=== PATIENT | male | born 1985 | race Caucasian/White ===

== ENCOUNTER 2021-03-21 07:39 | Emergency (ER) | payer MEDICAID, SELFPAY ==
[2021-03-21 07:50] VITALS: BP 157/107; PULSE 74; TEMP 36.9; O2SAT 98
--- NOTE | 2021-03-21 08:03 | ED.GENADUL_ITS ---
Discharge Plan Disposition Patient Disposition: HOME Condition: Stable Discharge Details Clinical Impression: Rash Primary Care Provider: Ish Kim ED Provider: Lesa Wilson Home Meds and New Rx's Prescriptions: No Action Complera 1 EACH tablet 1 ea PO DAILY RF: 0 epinephrine [EpiPen 2-Shin] 0.3 MG/0.3 ML auto-injector 0.3 mg IJ PRN PRNQty: 1 RF: 0 sumatriptan succinate 100 mg tablet 100 mg PO BID PRNRF: 0 amlodipine 10 mg tablet 10 mg PO DAILY RF: 0 Discharge Instructions Instructions: Tick Bite (ED) Additional Instructions: Today you were given Doxycycline 200mg which is the treatment for possible tick bite. Please follow-up with your primary care provider in 3 to 5 days. Please take Tylenol or Ibuprofen with food every 4-6 hours as needed for pain and swelling. Referrals: Ish Kim [Primary Care Provider] - Discharge Data Discharge Date/Time-TO BE ENTERED AT DEPARTURE: 03/21/21 08:24 Medical Decision Making 35-year-old male presents to the ER with chief complaint of circular lesion to his left inner forearm. Patient is concerned that he may have been bitten by a tick but is unsure. He denies any other rash or lesions denies pruritus no fever no other associated symptoms. On initial exam he has a small circular lesion with surrounding ecchymosis with a central raised area. Patient prescribed doxycycline 200 mg p.o. x1 for possible tick bite exposure. Will instruct to follow-up with PCP. This text was generated using [employer] dictation system, please disregard any oddities of phrase or misspellings. HPI General Mode of arrival: ambulatory . Date/Time Provider Initiated Documentation: 03/21/21 08:02 . Limitations to Documentation: no limitations . Information obtained by: patient . HPI Narrative: 35-year-old male presents to the ER with chief complaint of circular lesion to his left inner forearm. Patient is concerned that he may have been bitten by a tick but is unsure. He denies any other rash or lesions denies pruritus no fever no other associated symptoms. On initial exam he has a small circular lesion with surrounding ecchymosis with a central raised area. Related Data Home Medications Medication Instructions Recorded Confirmed iodeabpza-[id number] DF 1 ea PO DAILY 03/22/15 03/21/21 [Complera Tablet] epinephrine [Epipen 2-Shin] 0.3 mg IJ PRN PRN #1 ml 03/22/15 03/21/21 amlodipine 10 mg PO DAILY 03/21/21 03/21/21 sumatriptan succinate 100 mg PO BID PRN 03/21/21 03/21/21 Previous Rx's Medication Instructions Recorded epinephrine [Epipen 2-Shin] 0.3 mg IJ PRN PRN #1 ml 03/22/15 Allergies Allergy/AdvReac Type Severity Reaction Status Date / Time apple Allergy Severe Anaphylaxsi Unverified 03/21/21 07:58 s sertraline HCl [From Zoloft] Allergy Severe Anaphylaxsi Unverified 03/21/21 07:58 s venom-honey bee Allergy Severe Anaphylaxsi Unverified 03/21/21 07:58 [bee venom (honey bee)] s General Stated Complaint: RashLesion NATALIE: 5 Review of Systems All systems reviewed & are unremarkable except as noted in HPI and below Integumentary/Breasts Skin/Breast: Reports rash (Left inner forearm) [facility] Social History Smoking/Tobacco Use Status: Current every day Tobacco Type: cigarettes Smoking risk assessment performed?: Yes Alcohol Intake: never Drug use: Daily Substance use type: marijuana Do you feel safe at home: Yes Do you feel safe in your relationship?: Yes Exam Skin General skin exam: no erythema and no fluctuance Rashes: rashes noted wheals left volar forearm size (0.5), borders irregular and color blue and with central clearing; fluctuant not assessed Full body images: 1. Small 0.5 cm circular lesion with surrounding ecchymosis central clearing. Course Vital Signs Vital signs: Vital Signs Temperature 36.9 C 03/21/21 07:50 Pulse 74 03/21/21 07:50 Blood Pressure 157/107 H 03/21/21 07:50 Pulse Oximetry 98 03/21/21 07:50 Temperature 36.9 C 03/21/21 07:50 Temperature Source Temporal Artery Scan 03/21/21 07:50 Pulse 74 03/21/21 07:50 Respiratory Effort Non-Labored 03/21/21 07:56 Blood Pressure 157/107 H 03/21/21 07:50 Blood Pressure Position Sitting 03/21/21 07:50 Pulse Oximetry 98 03/21/21 07:50 Oxygen Delivery Method Room Air 03/21/21 07:50 Oxygen Flow Rate 0 03/21/21 07:50 Pain Level 0 03/21/21 07:50
[2021-03-21] MEDS: Doxycycline Hyclate 100 MG CAP 200 MG PO (08:24)
== END 2021-03-21 08:24 | disposition home or self-care (01) ==
PROVIDERS: Emergency Provider Registered Nurse Emergency; PCP Family Medicine
DX: S50.862A Insect bite (nonvenomous) of left forearm, initial encounter (principal); W57.XXXA Bitten or stung by nonvenomous insect and other nonvenomous arthropods, initial encounter
CPT/HCPCS: 99283